=== PATIENT | male | born 1980 | race Caucasian/White ===

== ENCOUNTER 2020-09-21 06:35 | Outpatient (REF) | payer OTHER, SELFPAY ==
[2020-09-21 07:07] LABS: MANUAL DIFF FLAG NO
[2020-09-21 07:15] LABS: Basophils Absolute Auto 0.1 X10*3/uL (0.0-0.2); Basophils Percent Auto 0.7 % (0-2); Eosinophils Absolute Auto 0.3 X10*3/uL (0.0-0.4); Eosinophils Percent Auto 3.5 % (0-4); Hematocrit 46.4 % (42-52); Hemoglobin 15.5 g/dl (14.0-18.0); Imm Gran Abs Auto 0.04 X10*3/uL (0.00-0.03); Imm Gran Pct Auto 0.4 % (0.0-0.4); Lymphocytes Absolute Auto 2.5 X10*3/uL (1.2-4.9); Mean Corpuscular HGB Conc 33.4 g/dl (31.0-36.0); Mean Corpuscular Hemoglobin 28.7 pg (27.0-33.0); Mean Corpuscular Volume 85.8 fL (80-98); Monocytes Absolute Auto 0.9 X10*3/uL (0.1-1.2); Monocytes Percent Auto 9.6 % (2-11); Neutrophils Absolute Auto 5.4 X10*3/uL (2.0-8.3); Neutrophils Percent Auto 58.8 % (45-73); Platelet Count 368 X10*3/uL (160-400); Red Blood Count 5.41 X10*6/uL (4.60-5.80); Red Cell Distribution Width 13.2 % (11.0-16.0); White Blood Count 9.2 X10*3/uL (4.8-10.8)
[2020-09-21 07:42] LABS: Alanine Aminotransferase 22 U/L (0-40); Albumin Level 4.7 g/dL (3.5-5.0); Alkaline Phosphatase 51 U/L (39-117); Anion Gap 14 (12-20); Aspartate Amino Transferase 15 U/L (5-37); Bilirubin Total 0.6 mg/dL (0.0-1.0); Blood Urea Nitrogen 18 mg/dL (9-16); Calcium 10.1 mg/dL (8.4-10.2); Carbon Dioxide 30 mmol/L (22-29); Chloride 100 mmol/L (96-108); Cholesterol 210 mg/dL; Estimated Glomerular Filt Rate > 60; Glucose Fasting 118 mg/dL (60-99); HDL Cholesterol 43 mg/dL; LDL Cholesterol Calculated 149 mg/dl; Potassium 4.8 mmol/l (3.3-5.1); Sodium 139 mmol/L (135-145); Total Protein 7.8 g/dL (6.5-8.0); Triglycerides 93 mg/dL
[2020-09-21 08:00] LABS: Glucose Urine UA NEG (NEG); Leukocyte Esterase Urine NEG (NEG); Nitrite Urine NEG (NEG); PH 5.5 (5.0-8.0); Specific Gravity - Urine 1.025 (1.005-1.025); Urine Blood 2+ (NEG); Urine Ketones NEG (NEG); Urine Protein NEG (NEG-TRACE)
[2020-09-21 08:02] LABS: Appearance Urine CLEAR; Color Urine YELLOW
[2020-09-21 08:06] LABS: Prostate Specific Antigen Scr 0.37 ng/mL (<0.05-4.0)
[2020-09-21 08:23] LABS: WBC Urine 0-2 /HPF (0-4)
== END 2020-09-21 06:36 | disposition home or self-care (01) ==
LOC: HO.LAB 06:35
PROVIDERS: Visit Provider Internal Medicine
DX: Z00.00 Encounter for general adult medical examination without abnormal findings (principal); I10 Essential (primary) hypertension; R31.9 Hematuria, unspecified; E83.52 Hypercalcemia
CPT/HCPCS: 36415; 80053; 80061; 81001; 81003; 84153; 85025

== ENCOUNTER 2021-10-03 10:35 | Outpatient (REF) | payer OTHER, SELFPAY ==
[2021-10-03 10:38] LABS: MANUAL DIFF FLAG NO
[2021-10-03 10:45] LABS: Appearance Urine CLEAR; Basophils Percent Auto 0.5 % (0-2); Color Urine YELLOW; Eosinophils Absolute Auto 0.3 X10*3/uL (0.0-0.4); Eosinophils Percent Auto 3.8 % (0-4); Glucose Urine UA NEG (NEG); Hematocrit 45.4 % (42.0-52.0); Imm Gran Abs Auto 0.03 X10*3/uL (0.00-0.03); Imm Gran Pct Auto 0.3 % (0.0-0.4); Leukocyte Esterase Urine NEG (NEG); Lymphocytes Absolute Auto 2.4 X10*3/uL (1.2-4.9); Lymphocytes Percent Auto 27.6 % (20-40); Mean Corpuscular Hemoglobin 28.4 pg (27.0-33.0); Mean Platelet Volume 10.3 fL (9.4-12.4); Monocytes Absolute Auto 0.7 X10*3/uL (0.1-1.2); Monocytes Percent Auto 8.4 % (2-11); Neutrophils Absolute Auto 5.2 x10*3/uL (2.0-8.3); Neutrophils Percent Auto 59.4 % (45-73); Nitrite Urine NEG (NEG); PH 5.5 (5.0-8.0); Platelet Count 378 X10*3/uL (160-400); Red Blood Count 5.28 X10*6/uL (4.60-5.80); Red Cell Distribution Width 13.6 % (11.0-16.0); Specific Gravity - Urine 1.025 (1.005-1.025); Urine Blood 2+ (NEG); Urine Ketones NEG (NEG); Urine Protein NEG (NEG-TRACE); White Blood Count 8.8 X10*3/uL (4.8-10.8)
[2021-10-03 11:14] LABS: Alanine Aminotransferase 23 U/L (0-40); Albumin Level 4.3 g/dL (3.5-5.0); Alkaline Phosphatase 50 U/L (39-117); Anion Gap 12 (12-20); Aspartate Amino Transferase 16 U/L (5-37); Bilirubin Total 0.4 mg/dL (0.0-1.0); Blood Urea Nitrogen 12 mg/dL (9-16); Calcium 9.8 mg/dL (8.4-10.2); Carbon Dioxide 28 mmol/L (22-29); Chloride 104 mmol/L (96-108); Cholesterol 191 mg/dL; Estimated Glomerular Filt Rate > 60; Glucose Fasting 117 mg/dL (60-99); HDL Cholesterol 39 mg/dL; LDL Cholesterol Calculated 132 mg/dl; Potassium 4.1 mmol/L (3.3-5.1); Sodium 140 mmol/L (135-145); Total Protein 7.6 g/dL (6.5-8.0); Triglycerides 104 mg/dL
[2021-10-03 11:31] LABS: WBC Urine 0 /HPF (0-4)
[2021-10-03 11:47] LABS: PSA,Total (Free>4and<10) 0.35 ng/mL (0.00-4.00)
== END 2021-10-03 10:36 | disposition home or self-care (01) ==
LOC: HO.LNP 10:35
PROVIDERS: PCP Internal Medicine; Visit Provider Internal Medicine
DX: Z00.00 Encounter for general adult medical examination without abnormal findings (principal); Z12.5 Encounter for screening for malignant neoplasm of prostate; I10 Essential (primary) hypertension; E83.52 Hypercalcemia
CPT/HCPCS: 80053; 80061; 81001; 84153; 85025

== ENCOUNTER 2022-10-03 10:47 | Outpatient (REF) | payer OTHER, SELFPAY ==
[2022-10-03 10:54] LABS: MANUAL DIFF FLAG NO
[2022-10-03 11:04] LABS: Basophils Absolute Auto 0.1 X10*3/uL (0.0-0.2); Basophils Percent Auto 0.7 % (0-2); Eosinophils Absolute Auto 0.3 X10*3/uL (0.0-0.4); Eosinophils Percent Auto 3.8 % (0-4); Hematocrit 45.8 % (42.0-52.0); Hemoglobin 15.1 g/dl (14.0-18.0); Imm Gran Abs Auto 0.03 X10*3/uL (0.00-0.03); Imm Gran Pct Auto 0.4 % (0.0-0.4); Lymphocytes Absolute Auto 2.4 X10*3/uL (1.2-4.9); Lymphocytes Percent Auto 29.7 % (20-40); Mean Corpuscular Hemoglobin 27.6 pg (27.0-33.0); Mean Corpuscular Volume 83.6 fL (80.0-98.0); Mean Platelet Volume 10.1 fL (9.4-12.4); Monocytes Absolute Auto 0.7 X10*3/uL (0.1-1.2); Monocytes Percent Auto 8.3 % (2-11); Neutrophils Absolute Auto 4.6 x10*3/uL (2.0-8.3); Neutrophils Percent Auto 57.1 % (45-73); Platelet Count 393 X10*3/uL (160-400); Red Blood Count 5.48 X10*6/uL (4.60-5.80); Red Cell Distribution Width 13.5 % (11.0-16.0); White Blood Count 8.1 X10*3/uL (4.8-10.8)
[2022-10-03 11:06] LABS: Appearance Urine Clear; Color Urine Yellow; Glucose Urine UA Negative (Negative); Leukocyte Esterase Urine Negative (Negative); Nitrite Urine Negative (Negative); PH 5.5 (5.0-9.0); UMIC TRIGGER UACC YES; Urine Blood Moderate (2+) (Negative); Urine Ketones Negative (Negative); Urine Protein Negative (Neg-Trace)
[2022-10-03 11:12] LABS: Bacteria Urine None Seen (None Seen); Hyaline Casts Urine 0-2 /LPF (0-2); Squamous Epithelial Cell Urine 0-2 /HPF (0-2); WBC Urine 0-5 /HPF (0-5)
[2022-10-03 11:49] LABS: Alanine Aminotransferase 21 U/L (0-40); Albumin Level 4.5 g/dL (3.5-5.0); Alkaline Phosphatase 51 U/L (39-117); Anion Gap 13 (12-20); Aspartate Amino Transferase 16 U/L (5-37); Bilirubin Total 0.7 mg/dL (0.0-1.0); Blood Urea Nitrogen 21 mg/dL (9-16); Calcium 9.9 mg/dL (8.4-10.2); Carbon Dioxide 27 mmol/L (22-29); Chloride 103 mmol/L (96-108); Cholesterol 202 mg/dL; Estimated Glomerular Filt Rate > 60; Glucose Fasting 119 mg/dL (60-99); HDL Cholesterol 43 mg/dL; LDL Cholesterol Calculated 146 mg/dl; Sodium 139 mmol/L (135-145); Total Protein 7.4 g/dL (6.5-8.0); Triglycerides 67 mg/dL
[2022-10-03 12:12] LABS: PSA,Total (Free>4and<10) 0.37 ng/mL (0.00-4.00)
== END 2022-10-03 10:48 | disposition home or self-care (01) ==
LOC: HO.LNP 10:47
PROVIDERS: Visit Provider Internal Medicine
DX: Z00.00 Encounter for general adult medical examination without abnormal findings (principal); Z12.5 Encounter for screening for malignant neoplasm of prostate; I10 Essential (primary) hypertension; R31.9 Hematuria, unspecified; E83.52 Hypercalcemia
CPT/HCPCS: 80053; 80061; 81001; 81003; 84153; 85025

== ENCOUNTER 2022-11-06 11:05 | Outpatient (REF) | payer OTHER, SELFPAY ==
[2022-11-06 11:51] LABS: Blood Urea Nitrogen 19 mg/dL (9-16)
== END 2022-11-06 11:06 | disposition home or self-care (01) ==
LOC: HO.LNP 11:05
PROVIDERS: Visit Provider Internal Medicine
DX: R79.9 Abnormal finding of blood chemistry, unspecified (principal)
CPT/HCPCS: 84520

== ENCOUNTER 2023-10-04 10:52 | Outpatient (REF) | payer OTHER, SELFPAY ==
[2023-10-04 10:57] LABS: MANUAL DIFF FLAG NO
[2023-10-04 11:25] LABS: Appearance Urine Clear; Color Urine Yellow; Glucose Urine UA Negative (Negative); Leukocyte Esterase Urine Negative (Negative); Nitrite Urine Negative (Negative); PH 6.5 (5.0-9.0); Specific Gravity - Urine 1.025 (1.005-1.025); UMIC TRIGGER UACC YES; Urine Blood Small (1+) (Negative); Urine Ketones Negative (Negative); Urine Protein Negative (Neg-Trace)
[2023-10-04 11:26] LABS: Basophils Percent Auto 0.5 % (0-2); Eosinophils Absolute Auto 0.3 X10*3/uL (0.0-0.4); Eosinophils Percent Auto 3.9 % (0-4); Hematocrit 45.8 % (42.0-52.0); Hemoglobin 15.3 g/dl (14.0-18.0); Imm Gran Abs Auto 0.02 X10*3/uL (0.00-0.03); Imm Gran Pct Auto 0.2 % (0.0-0.4); Lymphocytes Absolute Auto 2.4 X10*3/uL (1.2-4.9); Lymphocytes Percent Auto 28.9 % (20-40); Mean Corpuscular HGB Conc 33.4 g/dl (31.0-36.0); Mean Corpuscular Hemoglobin 27.9 pg (27.0-33.0); Mean Corpuscular Volume 83.4 fL (80.0-98.0); Monocytes Absolute Auto 0.7 X10*3/uL (0.1-1.2); Monocytes Percent Auto 8.7 % (2-11); Neutrophils Absolute Auto 4.7 x10*3/uL (2.0-8.3); Neutrophils Percent Auto 57.8 % (45-73); Platelet Count 389 X10*3/uL (160-400); Red Blood Count 5.49 X10*6/uL (4.60-5.80); Red Cell Distribution Width 13.4 % (11.0-16.0); White Blood Count 8.2 X10*3/uL (4.8-10.8)
[2023-10-04 11:29] LABS: Bacteria Urine None Seen (None Seen); Hyaline Casts Urine 0-2 /LPF (0-2); Squamous Epithelial Cell Urine 0-2 /HPF (0-2); WBC Urine 0-5 /HPF (0-5)
[2023-10-04 11:54] LABS: Alanine Aminotransferase 15 U/L (0-40); Albumin Level 4.5 g/dL (3.5-5.0); Alkaline Phosphatase 47 U/L (39-117); Anion Gap 13 (12-20); Aspartate Amino Transferase 15 U/L (5-37); Bilirubin Total 0.4 mg/dL (0.0-1.0); Blood Urea Nitrogen 13 mg/dL (9-16); Calcium 9.8 mg/dL (8.4-10.2); Carbon Dioxide 27 mmol/L (22-29); Chloride 103 mmol/L (96-108); Cholesterol 157 mg/dL (<200); Estimated Glomerular Filt Rate > 60; Glucose Fasting 113 mg/dL (60-99); HDL Cholesterol 47 mg/dL (>40); LDL Cholesterol Calculated 100 mg/dL (<100); Potassium 3.6 mmol/L (3.3-5.1); Sodium 139 mmol/L (135-145); Total Protein 7.8 g/dL (6.5-8.0); Triglycerides 53 mg/dL (<150)
[2023-10-04 12:08] LABS: PSA,Total (Free>4and<10) 0.35 ng/mL (0.00-4.00)
== END 2023-10-04 10:53 | disposition home or self-care (01) ==
LOC: HO.LNP 10:52
PROVIDERS: Visit Provider Internal Medicine
DX: Z00.00 Encounter for general adult medical examination without abnormal findings (principal); Z12.5 Encounter for screening for malignant neoplasm of prostate; I10 Essential (primary) hypertension; R31.9 Hematuria, unspecified; E83.52 Hypercalcemia
CPT/HCPCS: 80053; 80061; 81001; 84153; 85025

== ENCOUNTER 2024-10-10 12:26 | Outpatient (REF) | payer OTHER, SELFPAY ==
[2024-10-10 12:36] LABS: MANUAL DIFF FLAG NO
--- OUTSIDE RECORDS SUMMARY | 2024-10-10 13:18 | XMS_ITS ---
Author Organization Huang Palafox MD Address [address] [place] [id number] Care Team Providers Care Manager Brand Name Role Phone Huang Palafox Primary Care Provider REASON FOR VISIT yearly fasting labs Encounters Encounter Location Date Provider Diagnosis Huang Palafox MD [address] [place] [id number] 10/10/2024 Huang Palafox Blood tests for routine general physical examination Z00.00 ; Essential hypertension I10 ; Hematuria R31.9 and Serum calcium elevated E83.52 Assessments Encounter Date Diagnosis (ICD Code) Assessment Notes Treatment Notes Treatment Clinical Notes Section Notes 10/10/2024 Blood tests for routine general physical examination (ICD-10 - Z00.00) 10/10/2024 Essential hypertension (ICD-10 - I10) 10/10/2024 Hematuria (ICD-10 - R31.9) 10/10/2024 Serum calcium elevated (ICD-10 - E83.52) Plan Of Treatment Pending Test Test Name Order Date Complete Blood Count Auto Diff 5 Comprehensive [place]. Panel Fast Lipid Panel 10/10/2024 PSA,Total (Free>4and<10) 10/10/2024 UA ClnCatch+Micro w/rflx Cult 10/10/2024 Next Appt Details Provider Name:Huang Roque ier, 10/17/2024 08:00:00 AM, [address], [address], [place], [place], [id number], Progress Notes * Paddy FLYNN LDOB:1980 (43 yo M)Acc No.[id number]:10/10/2024 Progress Note Patient:?Paddy FLYNN Provider:?Huang Palafox MD :1980???Age:43 Y???Sex:Male Cal e:10/10/2024 Address:[address] [place], [place] [id number] Subjective: * Chief Complaints: * ???1. Yearly fasting labs. * Medical History:? Objective: * Vitals:? Assessment: * Assessment: 1.?Blood tests for routine g eneral physical examination - Z00.00 (Primary)???2.?Essential hypertension - I10???3.?Hematuria - R31.9???4.?Serum calcium elevated - E83.52??? Plan: * Treatment: 2.?Essential hypertension?LAB: Complete Blood Count Auto Diff ?LAB: Comprehensive [place]. Panel Fast ?LAB: Lipid Panel ?LAB: PSA,Total (Free>4and<10) ?LAB: UA ClnCatch+Micro w/rflx Cult 3.?Hematuria?LAB: Complete Blood Count Auto Diff ?LAB: Comprehensive [place]. Panel Fast ?LAB: Lipid Panel ?LAB: PSA,Total (Free>4and<10) ?LAB: UA ClnCatch+Micro w/rflx Cult 4.?Serum calcium elevated?LAB: Complete Blood Count Auto Diff ?LAB: Comprehensive [place]. Panel Fast ?LAB: Lipid Panel ?LAB: PSA,Total (Free>4and<10) ?LAB: UA ClnCatch+Micro w/rflx Cult * Procedure Codes:?88466 VENIP UNCT, ROUTINE* * * The named appointment provid er may or may not be the originator of this progress note, and it is not deemed complete until electronically signed by the appointment provider. Sign off status: Pending * Provider:?Huang Palafox MD Date:?0 10/10/2024 Generated for Haley fraga/John/Renettaitting on:?10/10/2024 01:17 PM EST
--- OUTSIDE RECORDS SUMMARY | 2024-10-10 13:18 | XMS_ITS ---
Author Organization Huang Palafox MD Address [address] [place], [place] [phone] Care Team Providers Care Loan Auditor Name Role Phone Haung Palafox Primary Care Provider Allergies No Known Allergies Results Component Value Reference Range Notes Occult Blood, Stool, Guaiac Reviewed date:10/11/2023 08:35:28 AM Interpretation:Negative Performing Lab: Notes/Report: Negative Occult Blood, Stool, Guaiac Neg REASON FOR VISIT anuual visit, No Covid symptoms Social History Tobacco Use: Social History Observation Description Date Details (start date - stop date) Never Smoker NA - NA Tobacco Use/Smoking Question Answer Notes Patient is a nonsmoker Additional Findings: Tobacco Non-User Cu rrent non-smoker, currently using no form of tobacco Alcohol Screen Question Answer Notes Did you have a drink containing alcohol in the p ast year? No Points 0 Interpretation Negative Vital Signs Blood pressure systolic 132 mm Hg 10/11/19 24 Blood pressure diastolic 70 mm Hg 024 Height 71 in 10/11/2023 Weight 188 lbs 10/11/2023 BMI 26.22 kg/m2 10/11/2023 weight at home is 188 Encounters Encounter Location Date Provider Diagnosis Huang Palafox MD [address] [place], [place] [id number] 10/11/2023 Huang Palafox Hematuria R31.9 ; Annual physical exam Z00.00 ; Essential hypertension I10 ; Colon cancer screening Z12.11 and Depression screening Z13.31 Assessments Encounter Date Diagnosis (ICD Code) Assessment Notes Treatment Notes Treatment Clinical Notes Section Notes 10/11/2023 Hematuria (ICD-10 - R31.9) won 't do anything about it 10/11/2023 Annual physical exam (ICD-10 - Z00.00) labs reviewd and dsicussed with patient 10/11/2023 Essential hypertension (ICD-10 - I10) doing well on no meds 10/11/2023 Colon cancer screening (ICD-10 - Z12.11) guaiac negative 10/11/2023 Depression screening (ICD-10 - Z13.31) negative screen 10/11/2023 Other have told him he needs colonoscopy this year and he says no Plan Of Treatment Treatment Notes Assessment Notes Hematuria won 't do anything a bout it Annual physical exam labs reviewd and ds icussed with patient Essential hypertension doing well on no meds Colon cancer screening guaiac negative Depression screening negative screen Other have told him he nee ds colonoscopy this year and he says no Next Appt Details Provider Name:Huang Roque ier, 10/17/2024 08:00:00 AM, [address], [address], [place], [place], [id number], Progress Notes * Paddy FLYNN LDOB:1980 (42 yo M)Acc No.[id number]:10/11/2023 Progress Notes Patient:?Paddy Flynn L Provider:?Huang Palafox MD :1980???Age:42 Y???Sex:Male Cal e:10/11/2023 Address:[address] [place] [address] [id number] Subjective: * Chief Complaints: * ???Anuual visitNo Covid symp toms * HPI: ???Depression Screening:?PHQ-9?Little interest or pleasure in doing things?Not at all,?Feeling down, depressed, or hopeless?Not at all,?Trouble falling or staying asleep, or sleeping too much?Not at all,?Feeling tired or having little energy?Not at all,?Poor appetite or overeating?Not at all,?Feeling bad about yourself or that you are a failure, or have let yourself or your family down?Not at all,?Trouble concentrating on things, such as reading the newspaper or watching television?Not at all,?Moving or speaking so slowly that other people could have noticed; or the opposite, being so fidgety or restless that you have been moving around a lot more than usual?Not at all,?Thoughts that you would be better off or of hurting yourself in some way?Not at all,?Total Score?0.?Interpretation and Intervention?Depression Screening Findings?Negative,?Follow-Up for Depression?: review of PHQ-9 found negative result, no follow-up needed.?Communication Needs:?Communication Needs?Does the patient have a hearing impairment?No,?Does the patient have a vision impairment??No,?Does the patient have a cognition impairment??No.?SDOH Questions:?SDOH Questions?In the past year have you been worried about losing housing??No,?In the past year have you or any family members you live with been unable to get any of the following when it was really needed? Check all that apply:?None.?Symptom(s):? patient is a 42 yo mle here for annual visit with review of recent labs and follow up of chronic issues. * ROS:?General/Constitutional:?Patient denies?fatigue , headache.?Change in appetite?denies.?Chills?denies.?Fever?denies.?Ophthalmologic:?Blurred vision?denies.?Discharge?denies.?Pain?denies.?ENT:?Patient denies?decreased sense of smell , any loss of taste , sore throat.?Decreased hearing?denies.?Sore throat?denies.?Swollen glands?denies.?Endocrine:?Cold intolerance?denies.?Excessive thirst?denies.?Heat intolerance?denies.?Weight loss?denies.?Respiratory:?Cough?denies.?Shortness of breath at rest?denies.?Shortness of breath with exertion?denies.?Wheezing?denies.?Cardiovascular:?Chest pain at rest?denies.?Chest pain with exertion?denies.?Irregular heartbeat?denies.?Shortness of breath?denies.?Gastrointestinal:?Abdominal pain?denies.?Change in bowel habits?denies.?Diarrhea?denies.?Nausea?denies.?Rectal bleeding?denies.?Vomiting?denies .?Genitourinary:?Blood in urine?denies.?Difficulty urinating?denies.?Frequent urination?denies.?Musculoskeletal:?Patient denies?muscle aches.?Painful joints?denies.?Weakness?denies.?Peripheral Vascular:?Patient denies?red and blue toes.?Skin:?Dry skin?denies.?Itching?denies.?Denies?Mole(s),? changes in moles, new moles or any lesions of concern.?Denies?Photosensitivity.?Rash?denies.?Neurologic:?Dizziness?denies.?Fainting?denies.?Headache?denies.? * Medical History:? * Surgical History:? * Hospitalization/Major Diagno stic Procedure:? * Family History:?Father: dinora e 76 yrs.?Mother: alive 72 yrs.?2 sister(s) . 2 son(s) . .? Father- Healthy Mother-Healthy, Denies mental health/substance abuse family history, No pertinent family medical history, No pertinent family medical history, Denies mental health/substance abuse family history. * Social History:?Tobacco Use:?Tobacco Use/Smoking?Patient is a?nonsmoker,?Additional Findings: Tobacco Non-User?Current non-smoker, currently using no form of tobacco.?Drugs/Alcohol:?Alcohol Screen?Did you have a drink containing alcohol in the past year??No,?Points?0,?Interpretation?Negative.?Miscellaneous:?no Caffeine. Children: yes. no Exercise. Home smoke detector use: yes. Housing: owning. Living with: spouse. Marital status: . Occupation: weeks/months/years, works full-time. Pets: none. no Travel outside of the [place]. * Medications:?None * Allergies:?N.K.D.A.yes[Aller gies Verified] Objective: * Vitals:?Ht: 71, Wt:188, BMI: 26.22, BP:132/70 weight at home is 188. * ???Past Orders: ???Lab:Complete Blood Count Auto Diff (Order Date - 10/04/2023) (Collection Date - 10/04/2023) ? Value Reference Range ?White Blood Count 8.2 4. 8-10.8 - X10*3/uL ?Red Blood Count 5.49 4.60 -5.80 - X10*6/uL ?Hemoglobin 15.3 14.0-18.0 - g/dl ?Hematocrit 45.8 42.0-52.0 - % ?Mean Corpuscular Volume 83.4 80.0-98.0 - fL ?Mean Corpuscular Hemoglobin 27.9 27.0-33.0 - pg ?Mean Corpuscular HGB Conc 33.4 31.0-36.0 - g/dl ?Red Cell Distribution Width 13.4 11.0-16.0 - % ?Platelet Count 389 160-4 00 - X10*3/uL ?Mean Platelet Volume 10.0 9.4-12.4 - fL ?Neutrophils Percent Auto 57.8 45-73 - % ?Imm Gran Pct Auto 0.2 0. 0-0.4 - % ?Lymphocytes Percent Auto 28.9 20-40 - % ?Monocytes Percent Auto 8.7 2-11 - % ?Eosinophils Percent Auto 3.9 0-4 - % ?Basophils Percent Auto 0.5 0-2 - % ?NRBC Pct Auto 0.0 0.0-0. 2 - /100WBC ?Neutrophils Absolute Auto 4.7 2.0-8.3 - x10*3/uL ?Imm Gran Abs Auto 0.02 0. 00-0.03 - X10*3/uL ?Lymphocytes Absolute Auto 2.4 1.2-4.9 - X10*3/uL ?Monocytes Absolute Auto 0.7 0.1-1.2 - X10*3/uL ?Eosinophils Absolute Auto 0.3 0.0-0.4 - X10*3/uL ?Basophils Absolute Auto 0.0 0.0-0.2 - X10*3/uL ?NRBC Abs Auto 0.000 0.0-0. 012 - X10*3/uL ???Lab:Comprehensive [place]. P mayela Fast (Order Date - 10/04/2023) (Collection Date - 10/04/2023) ? Value Reference Range ?Sodium 139 135-145 - mmo l/L ?Bilirubin Total 0.4 0.0- 1.0 - mg/dL ?Aspartate Amino Transferase 15 5-37 - U/L ?Alanine Aminotransferase 15 0-40 - U/L ?Total Protein 7.8 6.5-8. 0 - g/dL ?Albumin Level 4.5 3.5-5. 0 - g/dL ?Alkaline Phosphatase 47 39-117 - U/L ?Potassium 3.6 3.3-5.1 - mmol/L ?Chloride 103 96-108 - mm ol/L ?Carbon Dioxide 27 22-29 - mmol/L ?Anion Gap 13 12-20 - ?Blood Urea Nitrogen 13 9-16 - mg/dL ?Creatinine 0.96 0.5-1.4 - mg/dL ?Estimated Glomerular Filt Rate > 60 - ?Glucose Fasting 113 H 60-9 9 - mg/dL ?Calcium 9.8 8.4-10.2 - m g/dL ???Lab:Lipid Panel (Order Da 10/04/2023) (Collection Date 10/04/2023) ? Value Reference Range ?Triglycerides 53 <150 - mg/dL ?Cholesterol 157 <200 - m g/dL ?LDL Cholesterol Calculated 100 H <100 - mg/dL ?HDL Cholesterol 47 >40 - mg/dL ???Lab:PSA,Total (Free>4and< 10) (Order 10/04/2023) (Collection Date - 10/04/2023) ? Value Reference Range ?PSA,Total (Free>4and<10) 0.35 0.00-4.00 - ng/mL ???Lab:UA ClnCatch+Micro w/r flx Cult (Order 10/04/2023) (Collection 10/04/2023) ? Value Reference Range ?Color Urine Yellow - ?Appearance Urine Clear - ?PH 6.5 5.0-9.0 - ?Glucose Urine UA Negative Neg ative - mg/dL ?Urine Blood Small (1+) A Negative - ?Specific [place] - Urine 1.025 1.005-1.025 - ?Urine Protein Negative Neg-Tr luan - mg/dL ?Urine Ketones Negative Negati ve - mg/dL ?Nitrite Urine Negative Negati ve - ?Leukocyte Esterase Urine Negative Negative - ?RBC Urine 11-20 A 0-2 - /HPF ?WBC Urine 0-5 0-5 - /HPF ?Squamous Epithelial Cell Urine 0-2 0-2 - /HPF ?Bacteria Urine None Seen None Seen - ?Hyaline Casts Urine 0-2 0-2 - /LPF * Examination: ???General Examination: ?GENERAL APPEARANCE:?well developed, well nourished, in no acute distress.?HEAD:?normocephalic, atraumatic.?EYES:?pupils equal, round, reactive to light and accommodation, sclera non-icteric.?EARS:?normal.?ORAL CAVITY:?mucosa moist.?THROAT:?clear.?NECK/THYROID:?neck supple, full range of motion, no cervical lymphadenopathy, no bruits.?SKIN:?warm and dry, no suspicious lesions.?HEART:?regular rate and rhythm, S1, S2 normal, no murmurs.?LUNGS:?clear to auscultation bilaterally.?ABDOMEN:?soft, nontender, nondistended, bowel sounds present, normal, no organomegaly , no masses palpable.?RECTAL EXAM:?normal tone, no external hemorrhoids, no masses palpable, prostate normal, stool guaiac negative.?MALE GENITOURINARY:?uncircumcised, testes descended bilaterally, no testicular mass.?EXTREMITIES:?no clubbing, cyanosis, or edema.?NEUROLOGIC:?nonfocal, motor strength normal upper and lower extremities, sensory exam intact.? Assessment: * Assessment: 1.?Annual physical exam - Z0 0.00 (Primary)?2.?Hematuria - R31.9?3.?Essential hypertension - I10?4.?Colon cancer screening - Z12.11?5.?Depression screening - Z13.31? Plan: * Treatment: 2.?Hematuria? Notes: won 't do anything about it.?? 3.?Essential hypertension? Notes: doing well on no meds.?? 4.?Colon cancer screening?LAB: Occult Blood, Stool, Guaiac?Negative ? Value Reference Range ?Occult Blood, Stool, Guaiac Neg Notes: guaiac negative.??5.?Depression screening? Notes: negative screen.??6.?Others? Notes: have told him he needs colonoscopy this year and he says no.?? * Procedure Codes:?18786 TEST FOR BLOOD, FECES * Preventive Medicine:? ??Counseling:?Care goal follow-up plan:?Counseling for abnormal BMI provided?Yes,?Above Normal BMI Follow-up?Giving encouragement to exercise.? * * Sign off status: Completed true * Provider:?Huang Palafox MD Date:?0 10/11/2023 Generated for Haley fraga/John/eTkevinsmitting on:?10/10/2024 01:18 PM EST History and Physical Notes * HPI (History of Present Illness) Category Sub-Category Detail Notes Category Not es Symptom(s) patient is a 42 yo mle here for annual visit with review of recent labs and follow up of chronic issues. Depression Screening PHQ-9 Little inte rest or pleasure in doing things: Not at all Feeling down, depressed, or hopeless: No t at all Trouble falling or staying asleep, or sl eeping too much: Not at all Feeling tired or having little energy: N ot at all Poor appetite or overeating: Not at all Feeling bad about yourself o r that you are a failure, or have let yourself or your family down: Not at all Trouble concentrating on thi ngs, such as reading the newspaper or watching television: Not at all Moving or speaking so slowly that other people could have noticed; or the opposite, being so fidgety or restless that you have been moving around a lot more than usual: Not at all Thoughts that you would be b nelson off or of hurting yourself in some way: Not at all Total Score: 0 Interpretation and Intervention Depression Amanda mallory Findings: Negative Follow-Up for Depression: : review of PH Q-9 found negative result, no follow-up needed SDOH Questions SDOH Questions In the past year have you been worried about losing housing?: No In the past year have you or any family members you live with been unable to get any of the following when it was really needed? Check all that apply:: None Communication Needs Communication Needs Does the patient have a hearing impairment: No Does the patient have a vision impairmen t?: No Does the patient have a cognition impair ment?: No Examination Category Sub-Category Detail Notes Category Not es General Examination GENERAL APPEARANCE: well dev eloped, well nourished, in no acute distress HEAD: normocephalic, atrau matic EYES: pupils equal, round, reactive to light and accommodation, sclera non-icteric EARS: normal THROAT: clear NECK/THYROID: neck supple, full ra nge of motion, no cervical lymphadenopathy, no bruits HEART: regular rate and rhy thm, S1, S2 normal, no murmurs LUNGS: clear to auscultatio n bilaterally ABDOMEN: soft, nontender, non distended, bowel sounds present, normal, no organomegaly , no masses palpable NEUROLOGIC: nonfocal, motor stre ngth normal upper and lower extremities, sensory exam intact SKIN: warm and dry, no latisha picious lesions EXTREMITIES: no clubbing, cyanosi s, or edema MALE GENITOURINARY: uncircumcised, teste s descended bilaterally, no testicular mass RECTAL EXAM: normal tone, no exte rnal hemorrhoids, no masses palpable, prostate normal, stool guaiac negative ORAL CAVITY: mucosa moist
--- OUTSIDE RECORDS SUMMARY | 2024-10-10 13:18 | XMS_ITS | Patient Health Record ---
Author Organization Huang Palafox MD Address [address] [place], [place] [id number] Care Team Providers Care Construction Person Name Role Phone Huang Palafox Primary Care Provider [phone] Allergies No Known Allergies Results Component Value Reference Range Notes Occult Blood, Stool, Guaiac Reviewed date:10/11/2023 08:35:28 AM Interpretation:Negative Performing Lab: Notes/Report: Negative Occult Blood, Stool, Guaiac Neg Reason For Referral No Information Immunizations Vaccine Route Administration Date Status Comme nts Fluarix Quadrivalent IM Intramuscular 06/19/2016 Administe red TDaP IM Intramuscular 06/22/2016 Administered Fluarix Quadrivalent IM Intramuscular 08/20/2018 Administe red Fluarix Quadrivalent Unknown 08/07/2017 Refused Fluarix Quadrivalent Unknown 09/09/2019 Refused Fluarix Quadrivalent Unknown 09/30/2020 Refused Covid Vaccine Unknown 10/07/2021 Refused Tetanus Unknown 06/22/2016 Pending Social History Tobacco Use: Social History Observation [...] ast year? No Points 0 Interpretation Negative Problems Problem Type SNOMED Code ICD Code Onset Dates Problem Status W/U Status Risk Notes Problem 03098948 Hematuria (R31.9) Active confirmed Problem 00228513 Essential hypertension (I10) Active confirmed Problem 28091779 Serum calcium elevated (E83.52) Active confirmed Vital Signs Blood pressure diastolic 70 mm Hg 10/11/2023 anita ght at home is 188 Height 71 in 10/11/2023 weight at home is 188 Blood pressure systolic 132 mm Hg 10/11/2023 weig ht at home is 188 Weight 188 lbs 10/11/2023 weight at home is 188 BMI 26.22 kg/m2 10/11/2023 weight at home is 188 Encounters Encounter Location Date Provider Diagnosis Huang Palafox MD [address] [place], [place] [phone] 10/10/2024 Huang Palfaox Blood tests for routine general physical examination Z00.00 ; Essential hypertension I10 ; Hematuria R31.9 and Serum calcium elevated E83.52 Huang Palafox MD [address] [place], [place] [id number] 10/11/2023 Huang Palafox Hematuria R31.9 ; Annual physical exam Z00.00 ; Essential hypertension I10 ; Colon cancer screening Z12.11 and Depression screening Z13.31 Assessments Encounter Date Diagnosis (ICD Code) Assessment Notes Treatment Notes Treatment Clinical Notes Section Notes 10/10/2024 Blood tests for routine general physical examination (ICD-10 - Z00.00) 10/11/2023 Hematuria (ICD-10 - R31.9) won 't do anything about it 10/11/2023 Annual physical exam (ICD-10 - Z00.00) labs reviewd and dsicussed with patient 10/10/2024 Essential hypertension (ICD-10 - I10) 10/11/2023 Essential hypertension (ICD-10 - I10) doing well on no meds 10/10/2024 Hematuria (ICD-10 - R31.9) 10/11/2023 Colon cancer screening (ICD-10 - Z12.11) guaiac negative 10/10/2024 Serum calcium elevated (ICD-10 - E83.52) 10/11/2023 Depression screening (ICD-10 - Z13.31) negative screen 10/11/2023 Other have told him he needs colonoscopy this year and he says no Plan Of Treatment Pending Test Test Name Order Date Electrocardiogram (EKG) 09/18/2019 Complete Blood Count Auto Diff 5 Comprehensive [place]. Panel Fast 5 Lipid Panel 10/10/2024 PSA,Total (Free>4and<10) 10/10/2024 UA ClnCatch+Micro w/rflx Cult 10/10/2024 Next Appt Details Provider Name:Huang Roque ier, 10/17/2024 08:00:00 AM, [address] [place] [address], [address], [place], [place], [id number], Insurance Providers Payer Name Payer Address Payer Phone Subscriber Number Group Number Insured Name Patient Relationship to Insured Coverage Start Date Coverage End Date [address] [facility] [place] [phone] [id number] Paddy Flynn Self - patient is the insured Medical (General) History Medical History History ICD Code hematuria told to go for uro logy w/u and has not. is aware of the risk of cancer
--- OUTSIDE RECORDS SUMMARY | 2024-10-10 13:18 | XMS_ITS ---
Author Organization Huang Palafox MD Address [address] [place], [place] [id number] Care Team Providers Care [employer] Name Role Phone Huang Palafox Primary Care Provider [phone] Results Component Value Reference Range Notes Complete Blood Count Auto Di ff Reviewed date:10/04/2023 12:52:46 PM Interpretation: Performing Lab:[facility], [address] [place] [phone] Notes/Report: White Blood Count 8.2 4.8-10.8 X10*3/uL Red Blood Count 5.49 4.60-5.80 X10*6/uL Hemoglobin 15.3 14.0-18.0 g/dl Hematocrit 45.8 42.0-52.0 % Mean Corpuscular Volume 83.4 80.0-98.0 fL Mean Corpuscular Hemoglobin 27.9 27.0-33.0 pg Mean Corpuscular HGB Conc 33.4 31.0-36.0 g/dl Red Cell Distribution Width 13.4 11.0-16.0 % Platelet Count 389 160-400 X10*3/uL Mean Platelet Volume 10.0 9.4-12.4 fL Neutrophils Percent Auto 57.8 45-73 % Imm Gran Pct Auto 0.2 0.0-0.4 % Lymphocytes Percent Auto 28.9 20-40 % Monocytes Percent Auto 8.7 2-11 % Eosinophils Percent Auto 3.9 0-4 % Basophils Percent Auto 0.5 0-2 % NRBC Pct Auto 0.0 0.0-0.2 /100WBC Neutrophils Absolute Auto 4.7 2.0-8.3 x10*3/u L Imm Gran Abs Auto 0.02 0.00-0.03 X10*3/uL Lymphocytes Absolute Auto 2.4 1.2-4.9 X10*3/u L Monocytes Absolute Auto 0.7 0.1-1.2 X10*3/uL Eosinophils Absolute Auto 0.3 0.0-0.4 X10*3/u L Basophils Absolute Auto 0.0 0.0-0.2 X10*3/uL NRBC Abs Auto 0.000 0.0-0.012 X10*3/uL Comprehensive [place]. Panel Fa st Reviewed date:10/04/2023 12:22:23 PM Interpretation: Performing Lab:[facility], [address] [place] [phone] Notes/Report: Sodium 139 135-145 mmol/L Potassium 3.6 3.3-5.1 mmol/L Chloride 103 96-108 mmol/L Carbon Dioxide 27 22-29 mmol/L Anion Gap 13 12-20 Blood Urea Nitrogen 13 9-16 mg/dL Creatinine 0.96 0.5-1.4 mg/dL Estimated Glomerular Filt Rate > 60 NOTE: For -[place] individuals, multiply the result by 1.210. Chronic Kidney Disease: Estimated GFR < 60 mL/min/1.73m2 Severe Kidney Disease: Estimated GFR < 15 mL/min/1.73m2 Glucose Fasting 113 60-99 mg/dL A fasting glucose from 100-125 mg/dl is considered impaired (pre-diabetes). Calcium 9.8 8.4-10.2 mg/dL Bilirubin Total 0.4 0.0-1.0 mg/dL Aspartate Amino Transferase 15 5-37 U/L Alanine Aminotransferase 15 0-40 U/L Total Protein 7.8 6.5-8.0 g/dL Albumin Level 4.5 3.5-5.0 g/dL Alkaline Phosphatase 47 39-117 U/L Lipid Panel Reviewed date:10/04/2023 12:24:10 PM Interpretation: Performing Lab:[facility], [address] [place] [phone] Notes/Report: Triglycerides 53 <150 mg/dL Desirable Triglyceride: less than 150 mg/dL Borderline High Triglyceride 150-199 mg/dL High Triglyceride: 200-499 mg/dL Very High Triglyceride: greater than or equal to 5OO mg/dL Cholesterol 157 <200 mg/dL Desirable Cholesterol: less than 200 mg/dL Borderline High Cholesterol: 200-239 mg/dL High Cholesterol: greater than 239 mg/dL LDL Cholesterol Calculated 100 <100 mg/dL Desirable LDL: less than 100 mg/dL Near Optimal/Above Optimal LDL: 110-129 mg/dL Borderline High LDL: 130-159 mg/dL High LDL: 160-189 mg/dL Very High LDL: greater than or equal to 190 mg/dL HDL Cholesterol 47 >40 mg/dL Desirable HDL: greater than 40 mg/dL Note: This HDL assay may give artificially low results in patients with liver disease. PSA,Total (Free>4and<10) Reviewed date:10/04/2023 12:19:15 PM Interpretation: Performing Lab:[facility], [address] [place] [phone] Notes/Report: PSA,Total (Free>4and<10) 0.35 0.00-4.00 ng/mL A Free PSA was not performed: The percentage of Free PSA can be used to enhance the differentiation of prostate cancer from benign prostatic disease in subjects whose PSA levels are between 4.0 and 10.0 ng/mL. For subjects whose PSA levels are below 4.0 or above 10.0 ng/mL, the risk of prostate cancer is determined on the basis of the PSA alone. Therefore the % Free PSA is recommended only for those subjects whose PSA levels are between 4.0 and 10.0 ng/mL. PSA methodology: Varner Alinity i Chemiluminescent Microparticle Immunoassay (CMIA) UA ClnCatch+Micro w/rflx Cul t Reviewed date:10/04/2023 12:52:27 PM Interpretation: Performing Lab:[facility], [address] [place] [phone] Notes/Report: Urine, Clean Catch Color Urine Yellow Appearance Urine Clear PH 6.5 5.0-9.0 Glucose Urine UA Negative Negative mg/dL Urine Blood Small (1+) Negative Specific [place] - Urine 1.025 1.005-1.025 Urine Protein Negative Neg-Trace mg/dL Urine Ketones Negative Negative mg/dL Nitrite Urine Negative Negative Leukocyte Esterase Urine Negative Negative RBC Urine 11-20 0-2 /HPF WBC Urine 0-5 0-5 /HPF Squamous Epithelial Cell Urine 0-2 0-2 /HPF Bacteria Urine None Seen None Seen Hyaline Casts Urine 0-2 0-2 /LPF REASON FOR VISIT yearly labs Encounters Encounter Location Date Provider Diagnosis Huang Palafox MD [address] [place] [address] Drive [address] [place], [place] [id number] 10/04/2023 Huang Palafox Blood tests for routine general physical examination Z00.00 ; Essential hypertension I10 ; Hematuria R31.9 and Serum calcium elevated E83.52 Assessments Encounter Date Diagnosis (ICD Code) Assessment Notes Treatment Notes Treatment Clinical Notes Section Notes 10/04/2023 Blood tests for routine general physical examination (ICD-10 - Z00.00) 10/04/2023 Essential hypertension (ICD-10 - I10) 10/04/2023 Hematuria (ICD-10 - R31.9) 10/04/2023 Serum calcium elevated (ICD-10 - E83.52) Plan Of Treatment Next Appt Details Provider Name:Huang Roque ier, 10/17/2024 08:00:00 AM, [address] [place] [address], [address], [place], [place], [id number], Progress Notes * Paddy FLYNN LDOB:1980 (43 yo M)Acc No.[id number]:10/04/2023 Progress Note Patient:?Paddy FLYNN Provider:?Huang Palafox MD :1980???Age:42 Y???Sex:Male Cal e:10/04/2023 Address:[address] [place] [address] [id number] Subjective: * Chief Complaints: * ???1. Yearly labs. * Medical History:? Objective: * Vitals:? Assessment: * Assessment: 1.?Blood tests for routine g eneral physical examination - Z00.00 (Primary)???2.?Essential hypertension - I10???3.?Hematuria - R31.9???4.?Serum calcium elevated - E83.52??? Plan: * Treatment: 2.?Essential hypertension?LAB: Complete Blood Count Auto Diff (Collection Date & Time - 10/04/2023 07:00 AM) ?LAB: Comprehensive [place]. Panel Fast (Collection Date & Time - 10/04/2023 07:00 AM) ?LAB: Lipid Panel (Collection Date & Time - 10/04/2023 07:00 AM) ?LAB: PSA,Total (Free>4and<10) (Collection Date & Time - 10/04/2023 07:00 AM) ?LAB: UA ClnCatch+Micro w/rflx Cult (Collection Date & Time - 10/04/2023 07:00 AM) 3.?Hematuria?LAB: Complete Blood Count Auto Diff (Collection Date & Time - 10/04/2023 07:00 AM) ?LAB: Comprehensive [place]. Panel Fast (Collection Date & Time - 10/04/2023 07:00 AM) ?LAB: Lipid Panel (Collection Date & Time - 10/04/2023 07:00 AM) ?LAB: PSA,Total (Free>4and<10) (Collection Date & Time - 10/04/2023 07:00 AM) ?LAB: UA ClnCatch+Micro w/rflx Cult (Collection Date & Time - 10/04/2023 07:00 AM) 4.?Serum calcium elevated?LAB: Complete Blood Count Auto Diff (Collection Date & Time - 10/04/2023 07:00 AM) ?LAB: Comprehensive [place]. Panel Fast (Collection Date & Time - 10/04/2023 07:00 AM) ?LAB: Lipid Panel (Collection Date & Time - 10/04/2023 07:00 AM) ?LAB: PSA,Total (Free>4and<10) (Collection Date & Time - 10/04/2023 07:00 AM) ?LAB: UA ClnCatch+Micro w/rflx Cult (Collection Date & Time - 10/04/2023 07:00 AM) * Procedure Codes:?44111 VENIP UNCT, ROUTINE* * * The named appointment provid er may or may not be the originator of this progress note, and it is not deemed complete until electronically signed by the appointment provider. Sign off status: Pending * Provider:?Huang Palafox MD Date:?0 10/04/2023 Generated for Haley fraga/John/Renettaitting on:?10/10/2024 01:17 PM EST
[2024-10-10 13:21] LABS: Basophils Absolute Auto 0.1 X10*3/uL (0.0-0.2); Basophils Percent Auto 0.7 % (0-2); Eosinophils Absolute Auto 0.4 X10*3/uL (0.0-0.4); Eosinophils Percent Auto 5.3 % (0-4); Hematocrit 44.1 % (42.0-52.0); Hemoglobin 14.9 g/dl (14.0-18.0); Imm Gran Abs Auto 0.01 X10*3/uL (0.00-0.03); Imm Gran Pct Auto 0.1 % (0.0-0.4); Lymphocytes Absolute Auto 2.2 X10*3/uL (1.2-4.9); Mean Corpuscular HGB Conc 33.8 g/dl (31.0-36.0); Mean Corpuscular Hemoglobin 28.8 pg (27.0-33.0); Mean Corpuscular Volume 85.3 fL (80.0-98.0); Monocytes Absolute Auto 0.7 X10*3/uL (0.1-1.2); Monocytes Percent Auto 9.2 % (2-11); Neutrophils Absolute Auto 3.8 x10*3/uL (2.0-8.3); Neutrophils Percent Auto 53.7 % (45-73); Platelet Count 359 X10*3/uL (160-400); Red Blood Count 5.17 X10*6/uL (4.60-5.80); Red Cell Distribution Width 13.5 % (11.0-16.0)
[2024-10-10 13:30] LABS: Appearance Urine Clear; Color Urine Yellow; Glucose Urine UA Negative (Negative); Leukocyte Esterase Urine Negative (Negative); Nitrite Urine Negative (Negative); PH 5.5 (5.0-9.0); UMIC TRIGGER UACC YES; Urine Blood Small (1+) (Negative); Urine Ketones Negative (Negative); Urine Protein Negative (Neg-Trace)
[2024-10-10 13:36] LABS: Alanine Aminotransferase 14 U/L (0-40); Albumin Level 4.4 g/dL (3.5-5.0); Alkaline Phosphatase 43 U/L (39-117); Anion Gap 16 (12-20); Aspartate Amino Transferase 23 U/L (5-37); Bilirubin Total 0.6 mg/dL (0.0-1.0); Blood Urea Nitrogen 15 mg/dL (9-16); Calcium 9.8 mg/dL (8.4-10.2); Carbon Dioxide 25 mmol/L (22-29); Chloride 104 mmol/L (96-108); Cholesterol 148 mg/dL (<200); Estimated Glomerular Filt Rate > 60; Glucose Fasting 106 mg/dL (60-99); HDL Cholesterol 45 mg/dL (>40); LDL Cholesterol Calculated 94 mg/dL (<100); Potassium 3.9 mmol/L (3.3-5.1); Sodium 141 mmol/L (135-145); Total Protein 7.8 g/dL (6.5-8.0); Triglycerides 49 mg/dL (<150)
[2024-10-10 13:50] LABS: PSA,Total (Free>4and<10) 0.41 ng/mL (0.00-4.00)
[2024-10-10 14:18] LABS: Bacteria Urine None Seen (None Seen); Hyaline Casts Urine 0-2 /LPF (0-2); RBC Urine 0-2 /HPF (0-2); Squamous Epithelial Cell Urine 0-2 /HPF (0-2); WBC Urine 0-5 /HPF (0-5)
== END 2024-10-10 12:27 | disposition home or self-care (01) ==
LOC: HO.LNP 12:26
PROVIDERS: Visit Provider Internal Medicine
DX: Z00.00 Encounter for general adult medical examination without abnormal findings (principal); I10 Essential (primary) hypertension; R31.9 Hematuria, unspecified; E83.52 Hypercalcemia; Z12.5 Encounter for screening for malignant neoplasm of prostate
CPT/HCPCS: 80053; 80061; 81001; 84153; 85025